=== PATIENT | male | born 1970 | race Caucasian/White ===

== ENCOUNTER 2017-12-29 19:15 | Emergency (ER) | payer BC ==
[2017-12-29 19:40] VITALS: BP 146/92; PULSE 76; RESP 14; TEMP 96.6; O2SAT 95
[2017-12-29] MEDS ORDERED: LIDOCAINE 1% W/EPI MPF 30 ML SOL SC ONE (19:51)
[2017-12-29] MEDS ORDERED: LIDOCAINE 1% W/EPI MPF 30 ML SOL ONE (19:52)
== END 2017-12-29 20:34 | disposition home or self-care (01) ==
LOC: ED 19:15
DX: S61.211A Laceration without foreign body of left index finger without damage to nail, initial encounter (principal); W26.0XXA Contact with knife, initial encounter
CPT/HCPCS: 12001; 99282; G0168